=== PATIENT | female | born 1975 | race Caucasian/White ===

== ENCOUNTER 2020-11-11 18:02 | Emergency (ER) | payer MEDICAID ==
[2020-11-11] MEDS ORDERED: Prochlorperazine 10 MG/2 ML SDV IVPUSH ONE (20:05)
[2020-11-11] MEDS ORDERED: Ketorolac 30 MG/ML SDV IVPUSH ONE (20:06)
[2020-11-11] MEDS ORDERED: diphenhydrAMINE 50 MG/ML SDV IVPUSH ONE (20:06)
--- NOTE | 2020-11-11 20:09 | EDM.PDOC ---
ED HPI GENERAL MEDICAL PROBLEM - General Chief Complaint: Headache Stated Complaint: HEADACHE Time Seen by Provider: 11/11/20 20:06 Source of Information: Reports: Patient History Limitations: Reports: No Limitations - History of Present Illness INITIAL COMMENTS - FREE TEXT/NARRATIVE: pt has had a low gerade headache for about 5 days. She states this got extremely bad this am and she has been vomiting all day. She is not able to hold her meds down. She normally uses rizztrptan and gets good relief. Onset: Gradual, Other ( headache got much worse today. She sees this as a typical migraine but worse. [facility] [place] Duration: Hour(s): Location: Reports: Generalized Associated Symptoms: Reports: Headaches, Nausea/Vomiting Anterior Headache Pain Score (Numeric/FACES): 9 - Related Data Allergies Allergy/AdvReac Type Severity Reaction Status Date / Time capsaicin Allergy Bleeding Verified 11/11/20 18:38 ciprofloxacin [From Cipro] Allergy Anaphylactic Verified 11/11/20 18:38 Shock pregabalin [From Lyrica] Allergy Hives Verified 11/11/20 18:38 Home Meds: Home Meds Chlorthalidone 25 mg PO DAILY 11/11/20 [History] Cholecalciferol (Vitamin D3) [Vitamin D3] 2,000 unit PO DAILY 11/11/20 [History] Empagliflozin [Jardiance] 25 mg PO DAILY 11/11/20 [History] Gabapentin [Neurontin] 1,200 mg PO ACDINNER 11/11/20 [History] Gabapentin [Neurontin] 600 mg PO ACBREAKFAST 11/11/20 [History] Gabapentin [Neurontin] 900 mg PO ACLUNCH 11/11/20 [History] Ibuprofen 400 mg PO TID 11/11/20 [History] Liraglutide [Victoza 3-Juan Manuel] 18 mg .XX ACBREAKFAST 11/11/20 [History] Loratadine 10 mg PO DAILY 11/11/20 [History] Magnesium Chloride [Slow-Mag] 71.5 mg PO DAILY 11/11/20 [History] Mathis-3/DHA/Epa/Fish Oil [Fish Oil 1,400 MG Softgel] 1 each PO DAILY 11/11/20 [History] Omeprazole 20 mg PO DAILY 11/11/20 [History] atorvaSTATin [Lipitor] 10 mg PO BEDTIME 11/11/20 [History] lisinopriL [Lisinopril] 5 mg PO DAILY 11/11/20 [History] metFORMIN HCl [Metformin HCl ER] 1,000 mg PO BID 11/11/20 [History] Past Medical History HEENT History: Reports: Hard of Hearing Gastrointestinal History: Reports: Cholelithiasis Genitourinary History: Reports: Renal Calculus, UTI, Recurrent [employer] History: Reports: Endometriosis, Polycystic Ovaries Musculoskeletal History: Reports: Arthritis, Fibromyalgia Neurological History: Reports: MS, Other (See Below) Other Neuro History: degenerative disc disease Psychiatric History: Reports: ADHD, Anxiety, Depression Endocrine/Metabolic History: Reports: Diabetes, Type II, Hypomagnesemia, Vitamin D Deficiency - Infectious Disease History Infectious Disease History: Reports: Chicken Pox, Pertussis (Whooping Cough), Scarlet Fever Social & Family History - Tobacco Use Tobacco Use Status *Q: Former Tobacco User Used Tobacco, but Quit: Yes Month/Year Tobacco Last Used: 03/2020 - Caffeine Use Caffeine Use: Reports: Coffee - Recreational Drug Use Recreational Drug Use: Yes Recreational Drug Type: Reports: Other (see below) Other Recreational Drug Type: marijuana edibles for pain control ED ROS GENERAL - Review of Systems Review Of Systems: See Below Constitutional: Reports: Malaise, Weakness, Other (pt has a very severe headache. She is vomiting and not holding her meds down, ) HEENT: Reports: No Symptoms Respiratory: Reports: No Symptoms Cardiovascular: Reports: No Symptoms Endocrine: Reports: No Symptoms GI/Abdominal: Reports: No Symptoms : Reports: No Symptoms Musculoskeletal: Reports: Arm Pain, Leg Pain, Foot Pain, Joint Pain Skin: Reports: No Symptoms Neurological: Reports: Other (pt is having severe hives. ) - Physical Exam Exam: See Below Text/Narrative:: pt arrived with headache which has been going on for several days. She has a long history of migraine headaches. [facility] She has felt stressed regarding this. Exam Limited By: No Limitations General Appearance: Alert, Anxious, Mild Distress, Other (appears very uncomfortable. pupils equal and reactive) Ears: Normal TMs Nose: Normal Inspection Throat/Mouth: Normal Inspection Head Exam: Atraumatic, Other (pt has considerable swelling of the upper lip. ) Neck: Normal Inspection Respiratory/Chest: No Respiratory Distress Cardiovascular: Regular Rate, Rhythm GI/Abdominal: Soft, Non-Tender (Female) Exam: Deferred Rectal (Female) Exam: Deferred Neuro Exam (Abbreviated): Alert, Oriented, Normal Cognition Back Exam: Normal Inspection Extremities: Normal Inspection Psychiatric: Anxious Course - Vital Signs Last Recorded V/S: Last Vital Signs Temp 35.2 C L 11/11/20 19:10 Pulse 102 H 11/11/20 19:10 Resp 16 11/11/20 19:10 BP 158/92 H 11/11/20 19:10 Pulse Ox 96 11/11/20 19:10 - Orders/Labs/Meds Labs: Laboratory Tests 11/11/20 11/11/20 Range/Units 20:35 20:35 WBC 7.5 (4.5-11.0) K/uL RBC 5.02 (3.30-5.50) M/uL Hgb 15.6 H (12.0-15.0) g/dL Hct 43.6 (36.0-48.0) % MCV 87 (80-98) fL MCH 31 (27-31) pg MCHC 36 (32-36) % Plt Count 321 (150-400) K/uL Neut % (Auto) 64.1 (36-66) % Lymph % (Auto) 23.8 L (24-44) % Izard % (Auto) 10.6 H (2-6) % Eos % (Auto) 0.8 L (2-4) % Baso % (Auto) 0.7 (0-1) % Sodium 138 L (140-148) mmol/L Potassium 3.4 L (3.6-5.2) mmol/L Chloride 95 L (100-108) mmol/L Carbon Dioxide 29 (21-32) mmol/L Anion Gap 17.4 H (5.0-14.0) mmol/L BUN 19 H (7-18) mg/dL Creatinine 0.8 (0.6-1.0) mg/dL Est Cr Clr Drug Dosing 81.59 mL/min Estimated GFR (MDRD) > 60 (>60) Glucose 121 H (74-106) mg/dL Calcium 9.5 (8.5-10.1) mg/dL Meds: Medications Discontinued Medications Generic Name Dose Route Start Last Admin Trade Name Freq PRN Reason Stop Dose Admin Diphenhydramine HCl 25 mg 11/11/20 20:06 11/11/20 20:38 Diphenhydramine 50 Mg/Ml Sdv IVPUSH 11/11/20 20:07 25 mg ONETIME ONE Administration Hydromorphone HCl 0.5 mg 11/11/20 20:53 11/11/20 21:12 Hydromorphone 0.5 Mg/0.5 Ml Syringe IVPUSH 11/11/20 20:54 0.5 mg ONETIME ONE Administration Sodium Chloride 1,000 mls @ 999 mls/hr 11/11/20 20:15 11/11/20 20:29 Normal Saline IV 999 mls/hr ASDIRECTED ROMERO Administration Ketorolac Tromethamine 30 mg 11/11/20 20:06 11/11/20 20:31 Ketorolac 30 Mg/Ml Sdv IVPUSH 11/11/20 20:07 30 mg ONETIME ONE Administration Lorazepam 0.5 mg 11/11/20 20:53 11/11/20 21:12 Lorazepam 2 Mg/Ml Sdv IVPUSH 11/11/20 20:54 0.5 mg ONETIME ONE Administration Prochlorperazine Edisylate 10 mg 11/11/20 20:05 11/11/20 20:34 Prochlorperazine 10 Mg/2 Ml Sdv IVPUSH 11/11/20 20:06 10 mg ONETIME ONE Administration - Re-Assessments/Exams Free Text/Narrative Re-Assessment/Exam: 11/11/20 21:46 iv fluids were given to the pt . She was given torodol, benadryl, compazine which did give her relief. She was down to a 4. She was then given ativan .5 and dilaudid .5 and she did have good relief with that. Departure - Departure Time of Disposition: 21:40 Disposition: Home, Self-Care 01 Condition: Fair Clinical Impression: Migraine headache, Dehydration - Discharge Information Instructions: Migraine Headache, [id number], Dehydration, Adult, [id number] Referrals: Louis Cosby Jr, MD [Primary Care Provider] - Forms: ED Department Discharge Care Plan Goals: resume usual meds. low activity. zoforan 4mg q6h prn for nausea. Sepsis Event Note (ED) - Evaluation Sepsis Screening Result: No Definite Risk
[2020-11-11] MEDS ORDERED: Sodium Chloride 0.9% 1,000 ML IV SCH (20:15)
[2020-11-11] MEDS ORDERED: LORazepam 2 MG/ML SDV IVPUSH ONE (20:53)
[2020-11-11] MEDS ORDERED: HYDROmorphone 0.5 MG/0.5 ML Syringe IVPUSH ONE (20:53)
== END 2020-11-11 22:21 | disposition home or self-care (01) ==
LOC: JP.ED 18:02
DX: G43.909 Migraine, unspecified, not intractable, without status migrainosus (principal); E86.0 Dehydration; E11.9 Type 2 diabetes mellitus without complications; Z87.891 Personal history of nicotine dependence; Z88.1 Allergy status to other antibiotic agents; Z91.018 Allergy to other foods; Z88.6 Allergy status to analgesic agent; Z79.84 Long term (current) use of oral hypoglycemic drugs; Z79.899 Other long term (current) drug therapy
CPT/HCPCS: 36415; 80048; 85025; 96374; 96375; 99283; 99284; J0780; J1170; J1200; J1885; J2060; J7030

== ENCOUNTER 2022-10-10 21:17 | Emergency (ER) | payer MEDICAID ==
[2022-10-10] MEDS ORDERED: LORazepam 2 MG/ML SDV IVPUSH ONE (22:14)
[2022-10-10 22:26] LABS: BASOPHILS ABSOLUTE AUTO 0.07 K/uL (0.00-0.10); BASOPHILS PERCENT AUTO 0.8 % (0.1-1.3); EOSINOPHILS PERCENT AUTO 1.1 % (0.0-5.4); HEMATOCRIT 40.3 % (34.3-46.0); HEMOGLOBIN 14.6 g/dL (11.2-15.5); IMMATURE GRAN PERCENT AUTO 0.2 % (0.0-0.7); LYMPHOCYTES ABSOLUTE AUTO 2.59 K/uL (0.8-3.3); LYMPHOCYTES PERCENT AUTO 29.2 % (11.4-47.7); MEAN CORPUSCULAR HEMOGLOBIN 31.1 pg (31.6-35.5); MEAN CORPUSCULAR HGB CONC 36.2 g/dL (31.6-35.5); MEAN CORPUSCULAR VOLUME 85.7 fL (81.4-99.0); MONOCYTES ABSOLUTE AUTO 0.78 K/uL (0.20-0.90); MONOCYTES PERCENT AUTO 8.8 % (3.3-12.6); NEUTROPHILS PERCENT AUTO 59.9 % (40.0-78.1); PLATELET COUNT,PLT 317 K/uL (130-375); WHITE BLOOD CELL COUNT,WBC 8.9 K/uL (3.2-11.0)
[2022-10-10 22:30] LABS: IMMATURE GRAN ABSOLUTE AUTO 0.02 K/uL (0.00-0.23)
[2022-10-10 22:53] LABS: A/G RATIO 1.1 (1.2-2.2); ALANINE AMINOTRANSFERASE,ALT 122 U/L (12-78); ALBUMIN 3.9 g/dL (3.4-5.0); ALKALINE PHOSPHATASE 69 U/L (46-116); ANION GAP 14.6 mmol/L (5.0-14.0); ASPARTATE AMNIOTRANSFERASE,AST 66 U/L (15-37); BILIRUBIN TOTAL 0.4 mg/dL (0.2-1.0); BLOOD UREA NITROGEN,BUN 16 mg/dL (7-18); CALCIUM 9.6 mg/dL (8.5-10.1); CARBON DIOXIDE,CO2 31 mmol/L (21-32); CHLORIDE,CL 95 mmol/L (100-108); CREATININE 0.8 mg/dL (0.6-1.0); EST CRCL DRUG DOSING (CG) 79.91 mL/min; ESTIMATED GFR 93 mL/min (>60); GLUCOSE RANDOM 186 mg/dL (74-106); MAGNESIUM 1.4 mg/dL (1.8-2.4); POTASSIUM,K 3.6 mmol/L (3.6-5.2); PROTEIN TOTAL,TP 7.6 g/dL (6.4-8.2); SODIUM,NA 137 mmol/L (140-148); TSH ULTRASENSITIVE 3.862 uIU/mL (0.358-3.740)
[2022-10-10] MEDS ORDERED: LORazepam 2 MG/ML SDV IM ONE (22:58)
[2022-10-10] MEDS ORDERED: Magnesium Oxide 400 MG Tab PO ONE (22:59)
== END 2022-10-10 23:21 | disposition home or self-care (01) ==
LOC: JP.ED 21:17
DX: M62.838 Other muscle spasm (principal); E83.42 Hypomagnesemia; E11.9 Type 2 diabetes mellitus without complications; Z87.891 Personal history of nicotine dependence; Z79.84 Long term (current) use of oral hypoglycemic drugs; Z79.899 Other long term (current) drug therapy; Z88.1 Allergy status to other antibiotic agents; Z88.8 Allergy status to other drugs, medicaments and biological substances
CPT/HCPCS: 36415; 80053; 83735; 84443; 85025; 96372; 99284; A9270; J2060

== ENCOUNTER 2022-11-17 06:57 | Day surgery (SDC) | payer OTHER, MEDICAID ==
[2022-11-17] MEDS ORDERED: Propofol 200 MG/20 ML SDV ONE ×2 (07:02→10:00)
[2022-11-17] MEDS ORDERED: Lactated Ringers 1,000 ML IV SCH (08:00)
[2022-11-17] MEDS ORDERED: Lidocaine 1% 2 ML ONE (08:47)
[2022-11-17] MEDS ORDERED: fentaNYL 50 MCG/ML SDV ONE (10:00)
[2022-11-17] MEDS ORDERED: Midazolam 1 MG/ML 2 ML SDV ONE (10:00)
== END 2022-11-17 10:44 | disposition home or self-care (01) ==
LOC: JP.SDS 06:57
PROVIDERS: ATTEND Student in an Organized Health Care Education/Training Program
DX: K29.50 Unspecified chronic gastritis without bleeding (principal); K44.9 Diaphragmatic hernia without obstruction or gangrene; K63.89 Other specified diseases of intestine; K21.9 Gastro-esophageal reflux disease without esophagitis; F41.9 Anxiety disorder, unspecified; F90.9 Attention-deficit hyperactivity disorder, unspecified type; E11.9 Type 2 diabetes mellitus without complications; E78.00 Pure hypercholesterolemia, unspecified; Z88.1 Allergy status to other antibiotic agents; Z88.8 Allergy status to other drugs, medicaments and biological substances; Z91.040 Latex allergy status
CPT/HCPCS: 43239; 45380; 62323; 88305; J2250; J2704; J3010; J7120

== ENCOUNTER 2022-12-19 21:14 | Emergency (ER) | payer OTHER, MEDICAID ==
[2022-12-19] MEDS ORDERED: Lidocaine 1% 5 ML VIAL INJECT ONE (22:32)
[2022-12-19] MEDS ORDERED: Lidocaine 1% with EPINEPHrine 1:100,000 50 ML MDV SUBCUT ONE (22:34)
== END 2022-12-19 23:52 | disposition home or self-care (01) ==
LOC: JP.ED 21:14
DX: L02.01 Cutaneous abscess of face (principal); L03.211 Cellulitis of face; E11.628 Type 2 diabetes mellitus with other skin complications; E78.00 Pure hypercholesterolemia, unspecified; K21.9 Gastro-esophageal reflux disease without esophagitis; Z88.1 Allergy status to other antibiotic agents; Z91.040 Latex allergy status; Z88.8 Allergy status to other drugs, medicaments and biological substances; Z91.018 Allergy to other foods; Z79.899 Other long term (current) drug therapy; Z90.710 Acquired absence of both cervix and uterus
CPT/HCPCS: 10160; 87070; 87077; 87186; 87205; 99283

== ENCOUNTER 2023-02-02 15:54 | Emergency (ER) | payer OTHER, MEDICAID ==
[2023-02-02] MEDS ORDERED: Sodium Chloride 0.9% 10 ML Syringe FLUSH PRN (17:40)
[2023-02-02] MEDS ORDERED: Lactated Ringers 1,000 ML IV SCH (17:45)
[2023-02-02 17:52] LABS: BASOPHILS ABSOLUTE AUTO 0.07 K/uL (0.00-0.10); BASOPHILS PERCENT AUTO 0.7 % (0.1-1.3); EOSINOPHILS ABSOLUTE AUTO 0.03 K/uL (0.00-0.40); EOSINOPHILS PERCENT AUTO 0.3 % (0.0-5.4); HEMATOCRIT 35.9 % (34.3-46.0); HEMOGLOBIN 12.8 g/dL (11.2-15.5); IMMATURE GRAN ABSOLUTE AUTO 0.03 K/uL (0.00-0.23); IMMATURE GRAN PERCENT AUTO 0.3 % (0.0-0.7); LYMPHOCYTES ABSOLUTE AUTO 1.71 K/uL (0.8-3.3); LYMPHOCYTES PERCENT AUTO 17.6 % (11.4-47.7); MEAN CORPUSCULAR HEMOGLOBIN 30.3 pg (31.6-35.5); MEAN CORPUSCULAR HGB CONC 35.7 g/dL (31.6-35.5); MEAN CORPUSCULAR VOLUME 85.1 fL (81.4-99.0); MONOCYTES ABSOLUTE AUTO 0.91 K/uL (0.20-0.90); MONOCYTES PERCENT AUTO 9.4 % (3.3-12.6); NEUTROPHILS ABSOLUTE AUTO 6.98 K/uL (1.0-7.6); NEUTROPHILS PERCENT AUTO 71.7 % (40.0-78.1); PLATELET COUNT,PLT 234 K/uL (130-375); RED BLOOD CELL COUNT 4.22 M/uL (3.77-5.24); WHITE BLOOD CELL COUNT,WBC 9.7 K/uL (3.2-11.0)
[2023-02-02 18:14] LABS: A/G RATIO 1.1 (1.2-2.2); ALANINE AMINOTRANSFERASE,ALT 67 U/L (12-78); ALBUMIN 3.6 g/dL (3.4-5.0); ALKALINE PHOSPHATASE 60 U/L (46-116); ASPARTATE AMNIOTRANSFERASE,AST 48 U/L (15-37); BILIRUBIN TOTAL 0.3 mg/dL (0.2-1.0); BLOOD UREA NITROGEN,BUN 15 mg/dL (7-18); CALCIUM 9.5 mg/dL (8.5-10.1); CARBON DIOXIDE,CO2 27 mmol/L (21-32); CHLORIDE,CL 99 mmol/L (100-108); CREATINE KINASE,CK 46 U/L (26-192); ESTIMATED GFR 70 mL/min (>60); GLUCOSE RANDOM 241 mg/dL (74-106); POTASSIUM,K 4.5 mmol/L (3.6-5.2); PROTEIN TOTAL,TP 6.8 g/dL (6.4-8.2); SODIUM,NA 137 mmol/L (140-148)
[2023-02-02 18:18] LABS: ANION GAP 15.5 mmol/L (5.0-14.0)
== END 2023-02-02 21:39 | disposition home or self-care (01) ==
LOC: JP.ED 15:54
DX: R19.7 Diarrhea, unspecified (principal); E78.00 Pure hypercholesterolemia, unspecified; K21.9 Gastro-esophageal reflux disease without esophagitis; E11.9 Type 2 diabetes mellitus without complications; Z79.899 Other long term (current) drug therapy; Z79.84 Long term (current) use of oral hypoglycemic drugs; Z87.891 Personal history of nicotine dependence; Z88.1 Allergy status to other antibiotic agents; Z91.018 Allergy to other foods; Z88.8 Allergy status to other drugs, medicaments and biological substances; Z91.040 Latex allergy status
CPT/HCPCS: 36415; 80053; 82550; 83605; 83690; 84145; 85025; 96360; 99284; J3490; J7120; 99283

== ENCOUNTER 2023-05-19 07:53 | Emergency (ER) | payer MEDICAID, OTHER | END 2023-05-19 11:20 | disposition home or self-care (01) | LOC: JP.ED 07:53 | DX: T50.905A Adverse effect of unspecified drugs, medicaments and biological substances, initial encounter (principal); Z79.891 Long term (current) use of opiate analgesic; K21.9 Gastro-esophageal reflux disease without esophagitis; E78.00 Pure hypercholesterolemia, unspecified; E11.9 Type 2 diabetes mellitus without complications; Z79.4 Long term (current) use of insulin; Z79.84 Long term (current) use of oral hypoglycemic drugs; Z91.040 Latex allergy status | CPT/HCPCS: 82947; 99284 ==

== ENCOUNTER 2023-08-15 04:26 | Emergency (ER) | payer MEDICAID ==
[2023-08-15 04:53] LABS: BASOPHILS ABSOLUTE AUTO 0.09 K/uL (0.00-0.10); BASOPHILS PERCENT AUTO 0.8 % (0.1-1.3); EOSINOPHILS ABSOLUTE AUTO 0.23 K/uL (0.00-0.40); HEMATOCRIT 36.3 % (34.3-46.0); HEMOGLOBIN 12.3 g/dL (11.2-15.5); IMMATURE GRAN ABSOLUTE AUTO 0.04 K/uL (0.00-0.23); IMMATURE GRAN PERCENT AUTO 0.3 % (0.0-0.7); LYMPHOCYTES ABSOLUTE AUTO 2.01 K/uL (0.8-3.3); LYMPHOCYTES PERCENT AUTO 17.5 % (11.4-47.7); MEAN CORPUSCULAR HEMOGLOBIN 29.9 pg (31.6-35.5); MEAN CORPUSCULAR HGB CONC 33.9 g/dL (31.6-35.5); MEAN CORPUSCULAR VOLUME 88.3 fL (81.4-99.0); MONOCYTES ABSOLUTE AUTO 0.77 K/uL (0.20-0.90); MONOCYTES PERCENT AUTO 6.7 % (3.3-12.6); NEUTROPHILS ABSOLUTE AUTO 8.32 K/uL (1.0-7.6); NEUTROPHILS PERCENT AUTO 72.7 % (40.0-78.1); PLATELET COUNT,PLT 291 K/uL (130-375); RED BLOOD CELL COUNT 4.11 M/uL (3.77-5.24); WHITE BLOOD CELL COUNT,WBC 11.5 K/uL (3.2-11.0)
[2023-08-15 05:11] LABS: BLOOD UREA NITROGEN,BUN 10 mg/dL (7-18); CALCIUM 10.2 mg/dL (8.5-10.1); CARBON DIOXIDE,CO2 30 mmol/L (21-32); CHLORIDE,CL 102 mmol/L (100-108); ESTIMATED GFR 70 mL/min (>60); GLUCOSE RANDOM 113 mg/dL (74-106); POTASSIUM,K 4.3 mmol/L (3.6-5.2); SODIUM,NA 139 mmol/L (140-148)
[2023-08-15 05:15] LABS: ANION GAP 11.3 mmol/L (5.0-14.0); C-REACTIVE PROTEIN < 0.50 mg/dL (<0.50)
[2023-08-15 05:26] LABS: T3 FREE 1.9 pg/dL (2.18-3.98); T4 FREE 0.76 ng/dL (0.76-1.46); TSH ULTRASENSITIVE 5.399 uIU/mL (0.358-3.740)
[2023-08-15 05:45] LABS: APPEARANCE,URINE SLIGHTLY CLOUDY (CLEAR); BILIRUBIN,URINE NEGATIVE (NEGATIVE); COLOR,URINE YELLOW (YELLOW); GLUCOSE,URINE NEGATIVE (NEGATIVE); KETONES,URINE NEGATIVE (NEGATIVE); LEUKOCYTE ESTERASE,URINE TRACE (NEGATIVE); NITRITE,URINE NEGATIVE (NEGATIVE); OCCULT BLOOD,URINE SMALL (NEGATIVE); PH,URINE 6.5 (5.0-8.0); PROTEIN,URINE NEGATIVE (NEGATIVE); UROBILINOGEN,URINE 0.2 EU/dL (0.2-1.0)
[2023-08-15 05:50] LABS: BACTERIA,URINE FEW; EPITHELIAL CELLS,URINE FEW; MUCUS,URINE NOT SEEN
[2023-08-15 05:51] LABS: AMORPHOUS SEDIMENT,URINE NOT SEEN
== END 2023-08-15 07:02 | disposition home or self-care (01) ==
LOC: JP.ED 04:26
DX: E11.649 Type 2 diabetes mellitus with hypoglycemia without coma (principal); E78.00 Pure hypercholesterolemia, unspecified; K21.9 Gastro-esophageal reflux disease without esophagitis; Z88.1 Allergy status to other antibiotic agents; Z91.040 Latex allergy status; Z88.8 Allergy status to other drugs, medicaments and biological substances; Z86.19 Personal history of other infectious and parasitic diseases; Z79.4 Long term (current) use of insulin; Z79.84 Long term (current) use of oral hypoglycemic drugs; Z79.899 Other long term (current) drug therapy; Z90.710 Acquired absence of both cervix and uterus; Z87.891 Personal history of nicotine dependence
CPT/HCPCS: 36415; 80048; 81001; 82947; 84439; 84443; 84481; 85025; 86140; 99284

== ENCOUNTER 2025-04-09 02:24 | Emergency (ER) | payer MEDICAID ==
[2025-04-09 03:04] LABS: BASOPHILS ABSOLUTE AUTO 0.09 K/uL (0.00-0.10); BASOPHILS PERCENT AUTO 0.9 % (0.1-1.3); EOSINOPHILS ABSOLUTE AUTO 0.30 K/uL (0.00-0.40); EOSINOPHILS PERCENT AUTO 3.0 % (0.0-5.4); IMMATURE GRAN ABSOLUTE AUTO 0.03 K/uL (0.00-0.23); IMMATURE GRAN PERCENT AUTO 0.3 % (0.0-0.7); LYMPHOCYTES ABSOLUTE AUTO 1.34 K/uL (0.8-3.3); LYMPHOCYTES PERCENT AUTO 13.3 % (11.4-47.7); MONOCYTES ABSOLUTE AUTO 0.66 K/uL (0.20-0.90); MONOCYTES PERCENT AUTO 6.6 % (3.3-12.6); NEUTROPHILS ABSOLUTE AUTO 7.64 K/uL (1.0-7.6); NEUTROPHILS PERCENT AUTO 75.9 % (40.0-78.1); PLATELET COUNT,PLT 248 K/uL (130-375); RED BLOOD CELL COUNT 4.13 M/uL (3.77-5.24); WHITE BLOOD CELL COUNT,WBC 10.1 K/uL (3.2-11.0)
[2025-04-09 03:25] LABS: A/G RATIO 1.2 (1.2-2.2); ALANINE AMINOTRANSFERASE,ALT 87 U/L (12-78); ASPARTATE AMNIOTRANSFERASE,AST 47 U/L (15-37); BILIRUBIN TOTAL 0.3 mg/dL (0.2-1.0); BLOOD UREA NITROGEN,BUN 10 mg/dL (7-18); CARBON DIOXIDE,CO2 27 mmol/L (21-32); CHLORIDE,CL 100 mmol/L (100-108); CREATININE 0.9 mg/dL (0.6-1.0); ESTIMATED GFR 79 mL/min (>60); GLUCOSE RANDOM 173 mg/dL (74-106); POTASSIUM,K 4.0 mmol/L (3.6-5.2); PROTEIN TOTAL,TP 6.9 g/dL (6.4-8.2); SODIUM,NA 136 mmol/L (140-148)
[2025-04-09] MEDS: Prochlorperazine 10 MG/2 ML SDV IVPUSH ONE (03:29)
[2025-04-09] MEDS: Ketorolac 15 MG/ML SDV IVPUSH ONE (03:42)
[2025-04-09] MEDS: Sodium Chloride 0.9% 10 ML Syringe FLUSH PRN (04:11)
[2025-04-09] MEDS: Iopamidol 612 MG/ML 100 ML Bottle IV SCH (04:11)
[2025-04-09 04:58] LABS: APPEARANCE,URINE SLIGHTLY CLOUDY (CLEAR); GLUCOSE,URINE NEGATIVE (NEGATIVE); OCCULT BLOOD,URINE MODERATE (NEGATIVE)
[2025-04-09 05:05] LABS: SQUAMOUS EPITHELIAL CELLS,UR MANY /HPF; UROTHELIAL CELLS,URINE NOT SEEN /HPF
== END 2025-04-09 06:02 | disposition home or self-care (01) ==
LOC: JP.ED 02:24
DX: N20.0 Calculus of kidney (principal); I10 Essential (primary) hypertension; E78.00 Pure hypercholesterolemia, unspecified; E11.40 Type 2 diabetes mellitus with diabetic neuropathy, unspecified; K21.9 Gastro-esophageal reflux disease without esophagitis; Z90.710 Acquired absence of both cervix and uterus; Z79.899 Other long term (current) drug therapy; Z79.4 Long term (current) use of insulin; Z88.8 Allergy status to other drugs, medicaments and biological substances; Z88.1 Allergy status to other antibiotic agents; Z91.040 Latex allergy status
CPT/HCPCS: 36415; 74177; 80053; 81001; 85025; 86140; 96361; 96374; 96375; 99284; 99284-25; A9270-GY; J0780; J1885; J7030; Q9967